=== PATIENT | male | born 1950 | race Caucasian/White ===

== ENCOUNTER → 2018-10-14 08:08 | Outpatient (CLI) | payer MEDICARE, SELFPAY ==
[2018-10-14 08:50] LABS: Hematocrit 50.8 % (41-53); Hemoglobin 17.4 g/dL (13.5-17.5); Mean Corpuscular HGB Conc 34.4 % (30-36); Mean Corpuscular Hemoglobin 33.5 PG (26-34); Mean Corpuscular Volume 97.5 fL (80-100); Platelet Count 234 X10^3/uL (150-400); Red Cell Distribution Width 13.4 % (11.6-14.8); White Blood Cell Count 4.7 X10^3/uL (4.5-11.0)
[2018-10-14 09:56] LABS: Alanine Aminotransferase 18 IU/L (21-72); Albumin 4.1 g/dL (3.5-5.0); Albumin Globulin Ratio 1.4 (1.0-2.8); Alkaline Phosphatase 45 U/L (38-126); Aspartate Aminotransferase 20 IU/L (17-59); Bilirubin Total 0.6 mg/dL (0.2-1.3); Blood Urea Nitrogen 19 mg/dL (9-20); Carbon Dioxide 27 mmol/L (22-32); Chloride 102 mmol/L (98-107); Cholesterol 194 mg/dL (140-199); Estimated Glomerular Filt Rate > 60.0 mL/min (>60); Globulin 2.9 g/dL (1.7-4.1); Glucose 96 mg/dL (80-110); HDL Cholesterol 56 mg/dL (40-60); HEMOLYSIS < 15 (0-50); LDL Cholesterol Calculated 127 mg/dL (<100); Potassium 4.2 mmol/L (3.4-5.1); Sodium 136 mmol/L (137-145); Triglycerides 54 mg/dL (35-150)
[2018-10-14 10:26] LABS: Prostate Specific Antigen 2.29 ng/mL (0.10-4.00)
[2018-10-18 15:06] LABS: Testosterone Free 229.7 pg/mL (35.0-155.0); Testosterone Total 1541 ng/dL (250-1100)
== END ==
PROVIDERS: Visit Provider Family Medicine
DX: G47.00 Insomnia, unspecified (principal)
CPT/HCPCS: 36415; 80053; 80061; 84153; 84402; 84403; 85027

== ENCOUNTER → 2018-10-26 10:48 | Outpatient (CLI) | payer MEDICARE, SELFPAY ==
--- NOTE | 2018-10-26 10:50 | DI.RAD.S_ITS ---
PROCEDURE: XR LUMBAR SPINE 2-3V INDICATIONS: low back pain TECHNIQUE: 3 views of the lumbar spine were acquired. COMPARISON: None. FINDINGS: Bones: 5 [id number] vertebrae are present. There is mild dextroscoliosis centered at L3 level. No vertebral body compression fractures. Minimal retrolisthesis at L2-3 and L3-4 levels are seen. Degenerative endplate changes and bilateral facet arthrosis throughout lumbar spine is seen, more prominent at L2-3, L3-4 and L5-S1 levels. No suspicious bony lesions. Soft tissues: Overlying bowel gas pattern is normal. No suspicious soft tissue calcifications. IMPRESSION: Degenerative disc disease throughout lumbar spine. Mild dextroscoliosis. No acute compression fracture. Grade 1 retrolisthesis at L2-3 and L3-4 levels. Dictated by: Tony Cuevas M.D. on 10/26/2018 at 13:05 Approved by: Tony Cuevas M.D. on 10/26/2018 at 13:10
== END ==
PROVIDERS: PCP Family Medicine; Visit Provider Family Medicine
DX: M54.5 Low back pain (principal); M51.36 Other intervertebral disc degeneration, lumbar region; M51.37 Other intervertebral disc degeneration, lumbosacral region; M43.16 Spondylolisthesis, lumbar region; M41.86 Other forms of scoliosis, lumbar region
CPT/HCPCS: 72100

== ENCOUNTER 2019-01-16 08:15 | Outpatient (RCR) | payer MEDICARE, SELFPAY ==
--- NOTE | 2018-11-28 10:12 | PT.OIE ---
Current Diagnoses Low back pain (11/28/18) Past Medical History (Last Updated 03/04/18 @ 10:36 by Caitlyn Farmer) Depression (Chronic 1970) Diverticular disease (Chronic) Hearing loss (Chronic) Hemorrhoids (Chronic) Hyperlipidemia (Chronic) Hypertension (Chronic) Low testosterone (Chronic) Colon polyps (Resolved) Measles (Resolved 1957) Mumps (Resolved ~1954) Plantar warts (Resolved 2009) Past Surgical History (Last Updated 03/04/18 @ 10:36 by Caitlyn Farmer) Anesthesia (Resolved) History of appendectomy (Resolved 1959) History of colonoscopy with polypectomy (Resolved) History of inguinal hernia repair (Resolved 1973) History of inguinal hernia repair (Resolved 1975) History of inguinal hernia repair (Resolved 2003) Provider Visit Care Team Role Provider Type Jacques Charlton MD Attending Provider Physician Primary Care Provider Specialty: Family Practice Address: [address] [place] [address] Email: [email or web address] Physical Therapy Initial Evaluation PT-OP-A Visit Information Start: 11/28/18 09:06 Freq: Status: Active Protocol: Document 11/28/18 09:07 EA (Rec: 11/28/18 09:46 EA [id number]) Out-Patient Physical Therapy Visit Information Visit Information Visit Type Initial Evaluation Visit Start Time 08:20 Visit Stop Time 09:00 Total Visit Minutes 40 Visit Number 1 Number of SOCIAL MEDIA SR STRATEGY MANAGER Visits 0 Evaluation Information Evaluation Date 11/28/18 PT-OP-B Current Condition Start: 11/28/18 09:06 Freq: Status: Active Protocol: Document 11/28/18 09:07 EA (Rec: 11/28/18 09:46 EA [id number]) Current Condition History of Current Condition Onset Date 1 1/2 month ago Current Complaints Low back pain and left leg numbness History of Current Condition Patient reports chronic low back pain for more than 20 years and managed with rests, chiropractor and OTC pain meds . He reports 1 1/2 month ago when he re-aggravated it after abdominal and leg exercises. He mentioned that he usually hook his leg while doing sit- ups. He believes disc bulge might be causing to press the nerve. He also reports x-rays results shows DDD and lumbar dextro scoliosis with grade 1 anterolisthesis. Prior Treatments and Tests X-rays few weeks ago. Chiropractor treatment. Low back steroid injection Future Testing and Treatments Planned None reported Treatment Goals Patient/Caregiver Goals Patient would like to get rid of the leg numbness. Patient would like to know safe abdominal exercises. Prior Functional Status Baseline Function- ADL's Independent Baseline Function- Mobility Independent Baseline Function- Gait with no AD with no limitation Baseline Function- Work/School Retired Baseline Function- Recreation/Hobbies Regular general body fitness exercises Current Functional Impairments (Reported) Functional Limitations- ADL's Indep with dificulty in lifting activities when symptoms increased Functional Limitations- Mobility/Gait > 3 miles of walk aggravates low back pain with constant leg numbness Functional Limitations- Work/School retired Functional Limitations- Recreation/ Unable to get back to fitness Hobbies routine exercises due to fear of re-aggravating the low back area. PT-OP-C Subjective Start: 11/28/18 09:06 Freq: Status: Active Protocol: Document 11/28/18 09:07 EA (Rec: 11/28/18 09:46 EA [id number]) OP-PT Subjective Patient Comments Patient Comments My pain is pretty much resolved after low back injection; states It sort of left leg went to sleep. Patient Reported Progress Improving Patient Questionnaires Oswestry Low Back Index Oswestry Score 26 Oswestry Impairment 40 to 59% Impaired (Score 40- 59) PT-OP-G Mobility & Gait Start: 11/28/18 09:06 Freq: Status: Active Protocol: Document 11/28/18 09:07 EA (Rec: 11/28/18 09:46 EA [id number]) OP Gait Assessment Comments Gait Comments WFL PT-OP-H Neuro Start: 11/28/18 09:50 Freq: Status: Active Protocol: Document 11/28/18 09:50 EA (Rec: 11/28/18 09:51 EA [id number]) Sensation Evaluation Gross Sensation Gross Sensation Left LE Impaired Sensation Description Numbness [place] Dermatome Impairments L4 L5 S1 Coordination Evaluation Lower Extremity Tests Left Alternate Heel to Knee; Heel to Toe Test Normal Performance Heel on [place]ivas Test Normal Performance Foot Tapping Test Normal Performance Drawing a [place] w/Foot Test Normal Performance Deep Tendon Reflex & Clonus Assessment Deep Tendon Reflex Left Patellar Deep Tendon Reflex 2+ Normal PT-OP-J Posture/Palpation/Skin Start: 11/28/18 09:06 Freq: Status: Active Protocol: Document 11/28/18 09:07 EA (Rec: 11/28/18 09:46 EA [id number]) Posture Evaluation Comments Posture Comments Flat low back with left anterior pelvic tilt Palpation Assessment Location One Palpation Location Upper gluteal, left hip external rotators SI joint Palpation Findings Soft Tissue Tightness Tenderness PT-OP-K Range of Motion Start: 11/28/18 09:06 Freq: Status: Active Protocol: Document 11/28/18 09:07 EA (Rec: 11/28/18 09:46 EA [id number]) Lumbar Spine Range of Motion Lumbar Spine Active Percentage Testing Position Standing Flexion 65 Extension 75 Rotation Left 80 Rotation Right 80 Lateral Flexion Left 75 Lateral Flexion Right 75 ROM Limitations Soft Tissue Tightness PT-OP-L Special Tests Start: 11/28/18 09:06 Freq: Status: Active Protocol: Document 11/28/18 09:07 EA (Rec: 11/28/18 09:46 EA [id number]) Special Tests Lumbar Spine Special Tests Other- 3 Test Results Sensitive with Andrew's test Other- 2 Test Results - quadrant test (foraminal and facets) Other- 1 Test Results -ev SI joint sidlying compression Prone Instability Test Test Results -ve Straight Leg Raise Test Results Left sensitive Slump Test Results - Hip Special Tests Piriformis Test Results Sensitive PT-OP-M Strength Start: 11/28/18 09:06 Freq: Status: Active Protocol: Document 11/28/18 09:07 EA (Rec: 11/28/18 09:46 EA [id number]) Trunk Strength Trunk Manual Muscle Testing Testing Position Supine Flexion 4- Good- Extension 4 Good Rotation Left 4 Good Rotation Right 4 Good Lateral Flexion Left 4 Good Lateral Flexion Right 4 Good Hip Strength Hip Manual Muscle Testing Right Flexion (L2) 5 Normal Extension (S1) 5 Normal Abduction 4+ Good+ Adduction 5 Normal External Rotation 5 Normal Internal Rotation 5 Normal Left Flexion (L2) 5 Normal Extension (S1) 5 Normal Abduction 4+ Good+ Adduction 5 Normal External Rotation 5 Normal Internal Rotation 5 Normal Knee Strength Knee Manual Muscle Testing Right Flexion (S2) 5 Normal Extension (L3) 5 Normal Left Flexion (S2) 5 Normal Extension (L3) 5 Normal Ankle/Foot Strength Ankle and Foot Manual Muscle Testing Left Comments Able to walk on both heels and toes PT-OP-Q Treatments Start: 11/28/18 09:06 Freq: Status: Active Protocol: Document 11/28/18 09:07 EA (Rec: 11/28/18 09:46 EA [id number]) Therapeutic Exercises Supine Exercises 4 Supine Exercise Name SKTC Reps/Minutes x 30SH x 2 3 Supine Exercise Name PPT with partial sit ups, Oblique rota Reps/Minutes x 10 reps each sides 2 Supine Exercise Name Hamstring stretchs Reps/Minutes x 30SH x 3 Comments HEP 1 Supine Exercise Name Piriformis stretch Reps/Minutes x 30SH x 2 Comments HEP Self-Care/Home Management Treatment Education Patient Education Home Exercise Program Pain Management Posture PT-OP-T Assessment and Plan Start: 11/28/18 09:06 Freq: Status: Active Protocol: Document 11/28/18 09:07 EA (Rec: 11/28/18 09:46 EA [id number]) Physical Therapy Assessment Rehab Potential Rehabilitation Potential Good Evaluation Complexity Number of Personal Factors/Comorbidities 1-2 Number of Body Systems Impaired 3 Clinical Presentation at Evaluation Stable Impairments Impairments Activity Tolerance Pain Posture ROM Soft Tissue Mobility Goals Four Impairment Unable to do regular fitness exercises Longterm Goal (LTG) Patient will get back to regular fitness routine without re-aggravating low back and leg issues. LTG Duration 5 wks Three Impairment Impaired both hamstrings, hip flexors flexibility Longterm Goal (LTG) Patient will exhibit functional muscular excursion to both LEs. LTG Duration 4 wks Two Impairment Oswestry low back functional scale score of 26/50 [employer] Goal (LTG) Oswestry score of <10/50 LTG Duration 5 wks One Impairment NO home exercises in place [employer] Goal (LTG) Patient will exhibit safe independent exercises LTG Duration 3 wks` Assessment Summary Assessment Pleasant 68 y/o M patient with referring diagnosis of low back pain. Today patient demonstrates lumbosacral and hip muscular flexibility limitation with no significant weakness to BLE and trunk. Slight decreased lumbar lordosis noted with slight post pelvic tilt. Special tests to lumbar and SI joint noted no evidenced of nerve compression with negative to sacral compression, posterior quadrant test, and nerve provocation to lumbar area. Evidence of uneven height of pelvis and leg lenth discrepancy noted during assessment. In addition, patient is placing his wallet on the left side at all the time which is a potential source of pressing sciatic nerve . 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 Patient would benefit with skilled PT to improve flexibility, improve posture, safe fitness exercises and lifting mechanics education. Physical Therapy Plan Frequency and Duration Frequency of Treatment 1x/Week Duration of Treatment 6 wks Plan of Care Start Date 11/28/18 Plan of Care End Date 01/09/19 Therapeutic Interventions Therapeutic Interventions Home Exercise Program Joint Mobilizations Manual Therapy Patient/Caregiver Education Self-Care/Home Management Soft Tissue Mobilization Taping Therapeutic Activities Therapeutic Exercises Modalities Cold Pack/Ice Massage Electric Stimulation Hot Packs Traction- Mechanical Ultrasound Next Visit Focus/Plan Next Note Type Treatment Note Next Visit Plan HEP images, postural exercises , stretching, core exercises
--- NOTE | 2018-11-28 10:12 | PT.OPPOC ---
Current Diagnoses Low back pain (11/28/18) Provider Visit Care Team Role Provider Type Jacques Charlton MD Attending Provider Physician Primary Care Provider Specialty: Family Practice Address: [address] [place] [address], [facility] Email: [email or web address] Plan Of Care PT-OP-T Assessment and Plan Start: 11/28/18 09:06 Freq: Status: Active Protocol: Document 11/28/18 09:07 THOMAS (Rec: 11/28/18 09:46 EA [id number]) Physical Therapy Assessment Rehab Potential Rehabilitation Potential Good Evaluation Complexity Number of Personal Factors/Comorbidities 1-2 Number of Body Systems Impaired 3 Clinical Presentation at Evaluation Stable Impairments Impairments Activity Tolerance Pain Posture ROM Soft Tissue Mobility Goals Four Impairment Unable to do regular fitness exercises Acid Splicer Goal (LTG) Patient will get back to regular fitness routine without re-aggravating low back and leg issues. LTG Duration 5 wks Three Impairment Impaired both hamstrings, hip flexors flexibility Intermediate Goal (LTG) Patient will exhibit functional muscular excursion to both LEs. LTG Duration 4 wks Two Impairment Oswestry low back functional scale score of 26/50 Intermediate Goal (LTG) Oswestry score of <10/50 LTG Duration 5 wks One Impairment NO home exercises in place Intermediate Goal (LTG) Patient will exhibit safe independent exercises LTG Duration 3 wks` Assessment Summary Assessment Pleasant 68 y/o M patient with referring diagnosis of low back pain. Today patient demonstrates lumbosacral and hip muscular flexibility limitation with no significant weakness to BLE and trunk. Slight decreased lumbar lordosis noted with slight post pelvic tilt. Special tests to lumbar and SI joint noted no evidenced of nerve compression with negative to sacral compression, posterior quadrant test, and nerve provocation to lumbar area. Evidence of uneven height of pelvis and leg lenth discrepancy noted during assessment. In addition, patient is placing his wallet on the left side at all the time which is a potential source of pressing sciatic nerve . 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 Patient would benefit with skilled PT to improve flexibility, improve posture, safe fitness exercises and lifting mechanics education. Physical Therapy Plan Frequency and Duration Frequency of Treatment 1x/Week Duration of Treatment 6 wks Plan of Care Start Date 11/28/18 Plan of Care End Date 01/09/19 Therapeutic Interventions Therapeutic Interventions Home Exercise Program Joint Mobilizations Manual Therapy Patient/Caregiver Education Self-Care/Home Management Soft Tissue Mobilization Taping Therapeutic Activities Therapeutic Exercises Modalities Cold Pack/Ice Massage Electric Stimulation Hot Packs Traction- Mechanical Ultrasound Next Visit Focus/Plan Next Note Type Treatment Note Next Visit Plan HEP images, postural exercises , stretching, core exercises Plan of Care Dates Plan of Care Start Date 11/28/18 Plan of Care End Date 01/09/19 Please Sign and Return: I have reviewed this Plan of Care and certify that the skilled therapy services above are required to meet the patient?s needs. Physician Signature Date Printed Name and Credentials Clinical Instructor Signature Printed Name and Credentials
--- NOTE | 2018-12-08 12:05 | PT.OTN ---
Current Diagnoses Low back pain (12/08/18) Physical Therapy Treatment Note PT-OP-A Visit Information Start: 11/28/18 09:06 Freq: Status: Active Protocol: Document 12/08/18 08:55 EA (Rec: 12/08/18 09:02 EA [id number]) Out-Patient Physical Therapy Visit Information Visit Information Visit Type Treatment Note Visit Start Time 08:15 Visit Stop Time 09:05 Total Visit Minutes 50 Visit Number 2 PT-OP-B Current Condition Start: 11/28/18 09:06 Freq: Status: Active Protocol: Document 11/28/18 09:07 EA (Rec: 11/28/18 09:46 EA [id number]) Current Condition History of Current Condition Onset Date 1 1/2 month ago Current Complaints Low back pain and left leg numbness History of Current Condition Patient reports chronic low back pain for more than 20 years and managed with rests, chiropractor and OTC pain meds . He reports 1 1/2 month ago when he re-aggravated it after abdominal and leg exercises. He mentioned that he usually hook his leg while doing sit- ups. He believes disc bulge might be causing to press the nerve. He also reports x-rays results shows DDD and lumbar dextro scoliosis with grade 1 anterolisthesis. Prior Treatments and Tests X-rays few weeks ago. Chiropractor treament. Low back steroid injection Future Testing and Treatments Planned None reported Treatment Goals Patient/Caregiver Goals Patient would like to get rid of the leg numbness. Patient would like to know safe abdominal exercises. Prior Functional Status Baseline Function- ADL's Independent Baseline Function- Mobility Independent Baseline Function- Gait with no AD with no limitation Baseline Function- Work/School Retired Baseline Function- Recreation/Hobbies Regular general body fitness exercises Current Functional Impairments (Reported) Functional Limitations- ADL's Indep with dificulty in lifting activities when symptoms increased Functional Limitations- Mobility/Gait > 3 miles of walk aggravates low back pain with constant leg numbness Functional Limitations- Work/School retired Functional Limitations- Recreation/ Unable to get back to fitness Hobbies routine exercises due to fear of re-aggravating the low back area. PT-OP-C Subjective Start: 11/28/18 09:06 Freq: Status: Active Protocol: Document 12/08/18 08:55 EA (Rec: 12/08/18 09:02 EA [id number]) OP-PT Subjective Patient Comments Patient Comments Patient reports not placing any wallet left side anymore. Reports unable to perform HEP; states wants to have a copy PT-OP-G Mobility & Gait Start: 11/28/18 09:06 Freq: Status: Active Protocol: Document 11/28/18 09:07 EA (Rec: 11/28/18 09:46 EA [id number]) OP Gait Assessment Comments Gait Comments WFL PT-OP-H Neuro Start: 11/28/18 09:50 Freq: Status: Active Protocol: Document 11/28/18 09:50 EA (Rec: 11/28/18 09:51 EA [id number]) Sensation Evaluation Gross Sensation Gross Sensation Left LE Impaired Sensation Description Numbness [place] Dermatome Impairments L4 L5 S1 Coordination Evaluation Lower Extremity Tests Left Alternate Heel to Knee; Heel to Toe Test Normal Performance Heel on [place] Test Normal Performance Foot Tapping Test Normal Performance Drawing a [place] w/Foot Test Normal Performance Deep Tendon Reflex & Clonus Assessment Deep Tendon Reflex Left Patellar Deep Tendon Reflex 2+ Normal PT-OP-J Posture/Palpation/Skin Start: 11/28/18 09:06 Freq: Status: Active Protocol: Document 11/28/18 09:07 EA (Rec: 11/28/18 09:46 EA [id number]) Posture Evaluation Comments Posture Comments Flat low back with left anterior pelvic tilt Palpation Assessment Location One Palpation Location Upper gluteal, left hip external rotators SI joint Palpation Findings Soft Tissue Tightness Tenderness PT-OP-K Range of Motion Start: 11/28/18 09:06 Freq: Status: Active Protocol: Document 11/28/18 09:07 EA (Rec: 11/28/18 09:46 EA [id number]) Lumbar Spine Range of Motion Lumbar Spine Active Percentage Testing Position Standing Flexion 65 Extension 75 Rotation Left 80 Rotation Right 80 Lateral Flexion Left 75 Lateral Flexion Right 75 ROM Limitations Soft Tissue Tightness PT-OP-L Special Tests Start: 11/28/18 09:06 Freq: Status: Active Protocol: Document 11/28/18 09:07 EA (Rec: 11/28/18 09:46 EA [id number]) Special Tests Lumbar Spine Special Tests Other- 3 Test Results Sensitive with Andrew's test Other- 2 Test Results - quadrant test (foraminal and facets) Other- 1 Test Results -ev SI joint sidlying compression Prone Instability Test Test Results -ve Straight Leg Raise Test Results Left sensitive Slump Test Results - Hip Special Tests Piriformis Test Results Sensitive PT-OP-M Strength Start: 11/28/18 09:06 Freq: Status: Active Protocol: Document 11/28/18 09:07 EA (Rec: 11/28/18 09:46 EA [id number]) Trunk Strength Trunk Manual Muscle Testing Testing Position Supine Flexion 4- Good- Extension 4 Good Rotation Left 4 Good Rotation Right 4 Good Lateral Flexion Left 4 Good Lateral Flexion Right 4 Good Hip Strength Hip Manual Muscle Testing Right Flexion (L2) 5 Normal Extension (S1) 5 Normal Abduction 4+ Good+ Adduction 5 Normal External Rotation 5 Normal Internal Rotation 5 Normal Left Flexion (L2) 5 Normal Extension (S1) 5 Normal Abduction 4+ Good+ Adduction 5 Normal External Rotation 5 Normal Internal Rotation 5 Normal Knee Strength Knee Manual Muscle Testing Right Flexion (S2) 5 Normal Extension (L3) 5 Normal Left Flexion (S2) 5 Normal Extension (L3) 5 Normal Ankle/Foot Strength Ankle and Foot Manual Muscle Testing Left Comments Able to walk on both heels and toes PT-OP-Q Treatments Start: 11/28/18 09:06 Freq: Status: Active Protocol: Document 12/08/18 08:55 EA (Rec: 12/08/18 09:02 EA [id number]) Cardio Equipment Recumbent Bicycle Duration (Minutes) 5 Resistance 5 Therapeutic Exercises Supine Exercises 4 Supine Exercise Name SKTC Reps/Minutes x 30SH x 2 3 Supine Exercise Name PPT with partial sit ups, Oblique rota Reps/Minutes x 10 reps each sides 2 Supine Exercise Name Hamstring stretchs Reps/Minutes x 30SH x 3 Comments HEP 1 Supine Exercise Name Piriformis stretch Reps/Minutes x 30SH x 2 Comments HEP Prone Exercises 1 Prone Exercise Name quadroped: back flexion/ext Reps/Minutes x 15 reps x 2 sets Standing Exercises 1 Standing Exercise Name ITB stretch Reps/Minutes x 3 reps x 15SH Manual Therapy Treatment Soft Tissue Mobilization 1 Body Location Left gluteals, ITB Mobilization Type Myofascial Release Rolling Sustained Pressure Trigger Point Release Intensity/Depth Moderate Body Position Sidelying PT-OP-R Modalities Start: 11/28/18 09:06 Freq: Status: Active Protocol: Document 12/08/18 08:55 EA (Rec: 12/08/18 09:02 EA [id number]) Electric Stimulation Electric Stimulation Interferential Current (IFC) Body Location left gluteals Duration (Minutes) 15 Intensity 17 Contraction Type Normal Combined With Heat/Cold Hot Pack PT-OP-T Assessment and Plan Start: 11/28/18 09:06 Freq: Status: Active Protocol: Document 12/08/18 08:55 EA (Rec: 12/08/18 09:02 EA [id number]) Physical Therapy Assessment Assessment Summary Assessment Tolerated treatment well. Educated with HEP and shows good understanding Physical Therapy Plan Next Visit Focus/Plan Next Note Type Treatment Note
--- NOTE | 2018-12-26 13:51 | PT.OTN ---
Current Diagnoses Low back pain (12/26/18) Physical Therapy Treatment Note PT-OP-A Visit Information Start: 11/28/18 09:06 Freq: Status: Active Protocol: Document 12/26/18 12:08 EA (Rec: 12/26/18 12:15 EA [id number]) Out-Patient Physical Therapy Visit Information Visit Information Visit Type Treatment Note Visit Start Time 08:15 Visit Stop Time 09:05 Total Visit Minutes 40 Visit Number 3 PT-OP-B Current Condition Start: 11/28/18 09:06 Freq: Status: Active Protocol: Document 11/28/18 09:07 EA (Rec: 11/28/18 09:46 EA [id number]) Current Condition History of Current Condition Onset Date 1 1/2 month ago Current Complaints Low back pain and left leg numbness History of Current Condition Patient reports chronic low back pain for more than 20 years and managed with rests, chiropractor and OTC pain meds . He reports 1 1/2 month ago when he re-aggravated it after abdominal and leg exercises. He mentioned that he usually hook his leg while doing sit- ups. He believes disc bulge might be causing to press the nerve. He also reports x-rays results shows DDD and lumbar dextro scoliosis with grade 1 anterolisthesis. Prior Treatments and Tests X-rays few weeks ago. Chiropractor treament. Low back steroid injection Future Testing and Treatments Planned None reported Treatment Goals Patient/Caregiver Goals Patient would like to get rid of the leg numbness. Patient would like to know safe abdominal exercises. Prior Functional Status Baseline Function- ADL's Independent Baseline Function- Mobility Independent Baseline Function- Gait with no AD with no limitation Baseline Function- Work/School Retired Baseline Function- Recreation/Hobbies Regular general body fitness exercises Current Functional Impairments (Reported) Functional Limitations- ADL's Indep with dificulty in lifting activities when symptoms increased Functional Limitations- Mobility/Gait > 3 miles of walk aggravates low back pain with constant leg numbness Functional Limitations- Work/School retired Functional Limitations- Recreation/ Unable to get back to fitness Hobbies routine exercises due to fear of re-aggravating the low back area. PT-OP-C Subjective Start: 11/28/18 09:06 Freq: Status: Active Protocol: Document 12/26/18 12:08 EA (Rec: 12/26/18 12:15 EA [id number]) OP-PT Subjective Patient Comments Patient Comments Pt reports My pain and numbness to left leg and low back is episodic PT-OP-G Mobility & Gait Start: 11/28/18 09:06 Freq: Status: Active Protocol: Document 11/28/18 09:07 EA (Rec: 11/28/18 09:46 EA [id number]) OP Gait Assessment Comments Gait Comments WFL PT-OP-H Neuro Start: 11/28/18 09:50 Freq: Status: Active Protocol: Document 11/28/18 09:50 EA (Rec: 11/28/18 09:51 EA [id number]) Sensation Evaluation Gross Sensation Gross Sensation Left LE Impaired Sensation Description Numbness Tingling Pins & [place] Dermatome Impairments L4 L5 S1 Coordination Evaluation Lower Extremity Tests Left Alternate Heel to Knee; Heel to Toe Test Normal Performance Heel on [place]ivas Test Normal Performance Foot Tapping Test Normal Performance Drawing a [place] w/Foot Test Normal Performance Deep Tendon Reflex & Clonus Assessment Deep Tendon Reflex Left Patellar Deep Tendon Reflex 2+ Normal PT-OP-J Posture/Palpation/Skin Start: 11/28/18 09:06 Freq: Status: Active Protocol: Document 11/28/18 09:07 EA (Rec: 11/28/18 09:46 EA [id number]) Posture Evaluation Comments Posture Comments Flat low back with left anterior pelvic tilt Palpation Assessment Location One Palpation Location Upper gluteal, left hip external rotators SI joint Palpation Findings Soft Tissue Tightness Tenderness PT-OP-K Range of Motion Start: 11/28/18 09:06 Freq: Status: Active Protocol: Document 11/28/18 09:07 EA (Rec: 11/28/18 09:46 EA [id number]) Lumbar Spine Range of Motion Lumbar Spine Active Percentage Testing Position Standing Flexion 65 Extension 75 Rotation Left 80 Rotation Right 80 Lateral Flexion Left 75 Lateral Flexion Right 75 ROM Limitations Soft Tissue Tightness PT-OP-L Special Tests Start: 11/28/18 09:06 Freq: Status: Active Protocol: Document 11/28/18 09:07 EA (Rec: 11/28/18 09:46 EA [id number]) Special Tests Lumbar Spine Special Tests Other- 3 Test Results Sensitive with Andrew's test Other- 2 Test Results - quadrant test (foraminal and facets) Other- 1 Test Results -ev SI joint sidlying compression Prone Instability Test Test Results -ve Straight Leg Raise Test Results Left sensitive Slump Test Results - Hip Special Tests Piriformis Test Results Sensitive PT-OP-M Strength Start: 11/28/18 09:06 Freq: Status: Active Protocol: Document 11/28/18 09:07 EA (Rec: 11/28/18 09:46 EA [id number]) Trunk Strength Trunk Manual Muscle Testing Testing Position Supine Flexion 4- Good- Extension 4 Good Rotation Left 4 Good Rotation Right 4 Good Lateral Flexion Left 4 Good Lateral Flexion Right 4 Good Hip Strength Hip Manual Muscle Testing Right Flexion (L2) 5 Normal Extension (S1) 5 Normal Abduction 4+ Good+ Adduction 5 Normal External Rotation 5 Normal Internal Rotation 5 Normal Left Flexion (L2) 5 Normal Extension (S1) 5 Normal Abduction 4+ Good+ Adduction 5 Normal External Rotation 5 Normal Internal Rotation 5 Normal Knee Strength Knee Manual Muscle Testing Right Flexion (S2) 5 Normal Extension (L3) 5 Normal Left Flexion (S2) 5 Normal Extension (L3) 5 Normal Ankle/Foot Strength Ankle and Foot Manual Muscle Testing Left Comments Able to walk on both heels and toes PT-OP-Q Treatments Start: 11/28/18 09:06 Freq: Status: Active Protocol: Document 12/26/18 12:08 EA (Rec: 12/26/18 12:15 EA [id number]) Cardio Equipment Recumbent Bicycle Duration (Minutes) 5 Resistance 5 Therapeutic Exercises Supine Exercises 4 Supine Exercise Name SKTC Reps/Minutes x 30SH x 2 3 Supine Exercise Name PPT with partial sit ups, Oblique rota Reps/Minutes x 10 reps each sides 2 Supine Exercise Name Hamstring stretchs Reps/Minutes x 30SH x 3 Comments HEP 1 Supine Exercise Name Piriformis stretch Reps/Minutes x 30SH x 2 Comments HEP Prone Exercises 3 Prone Exercise Name Tito pose w/ stretch to right paralumbars Reps/Minutes x 15 SH x 2 reps Comments HEP comp 2 Prone Exercise Name Thread and needle Reps/Minutes X 12 reps x 2 sets Comments HEP comp 1 Prone Exercise Name quadroped: back flexion/ext Reps/Minutes x 15 reps x 2 sets Comments HEP comp Sitting Exercises 1 Sitting Exercise Name Lumbrs extension Reps/Minutes x 10 reps Standing Exercises 1 Standing Exercise Name ITB stretch Reps/Minutes x 3 reps x 15SH Comments HEP comp. Self-Care/Home Management Treatment Education Patient Education Home Exercise Program Pain Management Posture Other Education Discussed benefits of HEP on current condition. PT-OP-R Modalities Start: 11/28/18 09:06 Freq: Status: Active Protocol: Document 12/08/18 08:55 EA (Rec: 12/08/18 09:02 EA [id number]) Electric Stimulation Electric Stimulation Interferential Current (IFC) Body Location left gluteals Duration (Minutes) 15 Intensity 17 Contraction Type Normal Combined With Heat/Cold Hot Pack PT-OP-T Assessment and Plan Start: 11/28/18 09:06 Freq: Status: Active Protocol: Document 12/26/18 12:08 EA (Rec: 12/26/18 12:15 EA [id number]) Physical Therapy Assessment Assessment Summary Assessment Patient performed therex with no signs of discomfort. Patient shows good understanding with HEP and agrees to comply. Physical Therapy Plan Next Visit Focus/Plan Next Note Type Treatment Note Next Visit Plan Progress as tolerated.
--- NOTE | 2019-01-16 08:15 | PT.OTN ---
Current Diagnoses Low back pain (01/16/19) Physical Therapy Treatment Note PT-OP-A Visit Information Start: 11/28/18 09:06 Freq: Status: Active Protocol: Document 01/16/19 08:15 DLM (Rec: 01/21/19 18:35 DLM [id number]) Out-Patient Physical Therapy Visit Information Visit Information Visit Type Treatment Note Visit Start Time 08:15 Visit Stop Time 09:01 Total Visit Minutes 46 Visit Number 4 Number of LATHE WINDER Visits 0 Evaluation Information Evaluation Date 11/28/18 PT-OP-B Current Condition Start: 11/28/18 09:06 Freq: Status: Active Protocol: Document 11/28/18 09:07 EA (Rec: 11/28/18 09:46 EA [id number]) Current Condition History of Current Condition Onset Date 1 1/2 month ago Current Complaints Low back pain and left leg numbness History of Current Condition Patient reports chronic low back pain for more than 20 years and managed with rests, chiropractor and OTC pain meds . He reports 1 1/2 month ago when he re-aggravated it after abdominal and leg exercises. He mentioned that he usually hook his leg while doing sit- ups. He believes disc bulge might be causing to press the nerve. He also reports x-rays results shows DDD and lumbar dextro scoliosis with grade 1 anterolisthesis. Prior Treatments and Tests X-rays few weeks ago. Chiropractor treament. Low back steroid injection Future Testing and Treatments Planned None reported Treatment Goals Patient/Caregiver Goals Patient would like to get rid of the leg numbness. Patient would like to know safe abdominal exercises. Prior Functional Status Baseline Function- ADL's Independent Baseline Function- Mobility Independent Baseline Function- Gait with no AD with no limitation Baseline Function- Work/School Retired Baseline Function- Recreation/Hobbies Regular general body fitness exercises Current Functional Impairments (Reported) Functional Limitations- ADL's Indep with dificulty in lifting activities when symptoms increased Functional Limitations- Mobility/Gait > 3 miles of walk aggravates low back pain with constant leg numbness Functional Limitations- Work/School retired Functional Limitations- Recreation/ Unable to get back to fitness Hobbies routine exercises due to fear of re-aggravating the low back area. PT-OP-C Subjective Start: 11/28/18 09:06 Freq: Status: Active Protocol: Document 01/16/19 08:15 DLM (Rec: 01/21/19 18:35 DLM [id number]) OP-PT Subjective Patient Comments Patient Comments Left foot is still numb. He has been working out a the gym . PT-OP-G Mobility & Gait Start: 11/28/18 09:06 Freq: Status: Active Protocol: Document 11/28/18 09:07 EA (Rec: 11/28/18 09:46 EA [id number]) OP Gait Assessment Comments Gait Comments WFL PT-OP-H Neuro Start: 11/28/18 09:50 Freq: Status: Active Protocol: Document 11/28/18 09:50 EA (Rec: 11/28/18 09:51 EA [id number]) Sensation Evaluation Gross Sensation Gross Sensation Left LE Impaired Sensation Description Numbness,Tingling,Pins & [place] Dermatome Impairments L4,L5,S1 Coordination Evaluation Lower Extremity Tests Left Alternate Heel to Knee; Heel to Toe Test Normal Performance Heel on Rivas Test Normal Performance Foot Tapping Test Normal Performance Drawing a [place] w/Foot Test Normal Performance Deep Tendon Reflex & Clonus Assessment Deep Tendon Reflex Left Patellar Deep Tendon Reflex 2+ Normal PT-OP-J Posture/Palpation/Skin Start: 11/28/18 09:06 Freq: Status: Active Protocol: Document 11/28/18 09:07 EA (Rec: 11/28/18 09:46 EA [id number]) Posture Evaluation Comments Posture Comments Flat low back with left anterior pelvic tilt Palpation Assessment Location One Palpation Location Upper gluteal, left hip external rotators SI joint Palpation Findings Soft Tissue Tightness, Tenderness PT-OP-K Range of Motion Start: 11/28/18 09:06 Freq: Status: Active Protocol: Document 11/28/18 09:07 EA (Rec: 11/28/18 09:46 EA [id number]) Lumbar Spine Range of Motion Lumbar Spine Active Percentage Testing Position Standing Flexion 65 Extension 75 Rotation Left 80 Rotation Right 80 Lateral Flexion Left 75 Lateral Flexion Right 75 ROM Limitations Soft Tissue Tightness PT-OP-L Special Tests Start: 11/28/18 09:06 Freq: Status: Active Protocol: Document 11/28/18 09:07 EA (Rec: 11/28/18 09:46 EA [id number]) Special Tests Lumbar Spine Special Tests Other- 3 Test Results Sensitive with Andrew's test Other- 2 Test Results - quadrant test (foraminal and facets) Other- 1 Test Results -ev SI joint sidlying compression Prone Instability Test Test Results -ve Straight Leg Raise Test Results Left sensitive Slump Test Results - Hip Special Tests Piriformis Test Results Sensitive PT-OP-M Strength Start: 11/28/18 09:06 Freq: Status: Active Protocol: Document 11/28/18 09:07 EA (Rec: 11/28/18 09:46 EA [id number]) Trunk Strength Trunk Manual Muscle Testing Testing Position Supine Flexion 4- Good- Extension 4 Good Rotation Left 4 Good Rotation Right 4 Good Lateral Flexion Left 4 Good Lateral Flexion Right 4 Good Hip Strength Hip Manual Muscle Testing Right Flexion (L2) 5 Normal Extension (S1) 5 Normal Abduction 4+ Good+ Adduction 5 Normal External Rotation 5 Normal Internal Rotation 5 Normal Left Flexion (L2) 5 Normal Extension (S1) 5 Normal Abduction 4+ Good+ Adduction 5 Normal External Rotation 5 Normal Internal Rotation 5 Normal Knee Strength Knee Manual Muscle Testing Right Flexion (S2) 5 Normal Extension (L3) 5 Normal Left Flexion (S2) 5 Normal Extension (L3) 5 Normal Ankle/Foot Strength Ankle and Foot Manual Muscle Testing Left Comments Able to walk on both heels and toes PT-OP-Q Treatments Start: 11/28/18 09:06 Freq: Status: Active Protocol: Document 01/16/19 08:15 DLM (Rec: 01/21/19 18:35 DLM [id number]) Cardio Equipment Recumbent Bicycle Duration (Minutes) 5 Resistance 5 Gym Equipment Cable Column (Body Solid) Lat Pull Down Details standing with core stab Resistance modified how he does at gym Reps/Time 10 Therapeutic Exercises Supine Exercises 4 Supine Exercise Name SKTC Reps/Minutes x 30SH x 2 3 Supine Exercise Name PPT with partial sit ups, Oblique rota Reps/Minutes x 10 reps each sides 2 Supine Exercise Name Hamstring stretchs Reps/Minutes x 30SH x 3 Comments HEP 1 Supine Exercise Name Piriformis stretch Reps/Minutes x 30SH x 2 Comments HEP Standing Exercises 2 Standing Exercise Name heel raises Side bilateral Resistance active Equipment Used stop machine at gym Self-Care/Home Management Treatment Education Patient Education Home Exercise Program,Pain Management,Posture Other Education reviewed gym exercises he does on his own and recommended modifications to decrease stress on his back PT-OP-R Modalities Start: 11/28/18 09:06 Freq: Status: Active Protocol: Document 12/08/18 08:55 EA (Rec: 12/08/18 09:02 EA [id number]) Electric Stimulation Electric Stimulation Interferential Current (IFC) Body Location left gluteals Duration (Minutes) 15 Intensity 17 Contraction Type Normal Combined With Heat/Cold Hot Pack PT-OP-T Assessment and Plan Start: 11/28/18 09:06 Freq: Status: Active Protocol: Document 01/16/19 08:15 DLM (Rec: 01/21/19 18:35 DLM [id number]) Physical Therapy Assessment Goals Four Impairment Unable to do regular fitness exercises Usp Goal (LTG) Patient will get back to regular fitness routine without re-aggravating low back and leg issues. LTG Duration 5 wks Three Impairment Impaired both hamstrings, hip flexors flexibility Usp Goal (LTG) Patient will exhibit functional muscular excursion to both LEs. LTG Duration 4 wks Two Impairment Oswestry low back functional scale score of 26/50 Director General Goal (LTG) Oswestry score of <10/50 LTG Duration 5 wks One Impairment NO home exercises in place Director General Goal (LTG) Patient will exhibit safe independent exercises LTG Duration 3 wks` Progress Towards Goals Progress Towards Goals Slow Progress - Other Progress Comments low attendance to therapy since eval on 11/28/18 Assessment Summary Assessment Kirt tolerated his exercises well today. Made modifications to his HEP at the gym to decrease the stress on his back. He reports good compliance with HEP. His attendance to therapy has been low with this being his 4 visit since his eval in November. Physical Therapy Plan Frequency and Duration Frequency of Treatment 1x/Week Duration of Treatment 6 wks Plan of Care Start Date 11/28/18 Plan of Care End Date 01/09/19 Therapeutic Interventions Therapeutic Interventions Home Exercise Program,Joint Mobilizations,Manual Therapy, Patient/Caregiver Education, Self-Care/Home Management,Soft Tissue Mobilization,Taping, Therapeutic Activities, Therapeutic Exercises Modalities Cold Pack/Ice Massage,Electric Stimulation,Hot Packs, Traction- Mechanical, Ultrasound Next Visit Focus/Plan Next Note Type Treatment Note Next Visit Plan progress HEP, review gym exercises and modify as needed to manage his back
--- NOTE | 2019-01-21 18:38 | PT.OPDS ---
Current Diagnoses Low back pain (01/16/19) Visit Care Team Role Provider Type Jacques Charlton MD Attending Provider Physician Primary Care Provider Specialty: Family Practice Address: [address] [place] [address], [facility] Email: [email or web address] Visit Number Visit Number 4 Discharge Summary PT-OP-B Current Condition Start: 11/28/18 09:06 Freq: Status: Active Protocol: Document 11/28/18 09:07 EA (Rec: 11/28/18 09:46 EA [id number]) Current Condition History of Current Condition Onset Date 1 1/2 month ago Current Complaints Low back pain and left leg numbness History of Current Condition Patient reports chronic low back pain for more than 20 years and managed with rests, chiropractor and OTC pain meds . He reports 1 1/2 month ago when he re-aggravated it after abdominal and leg exercises. He mentioned that he usually hook his leg while doing sit- ups. He believes disc bulge might be causing to press the nerve. He also reports x-rays results shows DDD and lumbar dextro scoliosis with grade 1 anterolisthesis. Prior Treatments and Tests X-rays few weeks ago. Chiropractor treament. Low back steroid injection Future Testing and Treatments Planned None reported Treatment Goals Patient/Caregiver Goals Patient would like to get rid of the leg numbness. Patient would like to know safe abdominal exercises. Prior Functional Status Baseline Function- ADL's Independent Baseline Function- Mobility Independent Baseline Function- Gait with no AD with no limitation Baseline Function- Work/School Retired Baseline Function- Recreation/Hobbies Regular general body fitness exercises Current Functional Impairments (Reported) Functional Limitations- ADL's Indep with dificulty in lifting activities when symptoms increased Functional Limitations- Mobility/Gait > 3 miles of walk aggravates low back pain with constant leg numbness Functional Limitations- Work/School retired Functional Limitations- Recreation/ Unable to get back to fitness Hobbies routine exercises due to fear of re-aggravating the low back area. PT-OP-C Subjective Start: 11/28/18 09:06 Freq: Status: Active Protocol: Document 01/16/19 08:15 DLM (Rec: 01/21/19 18:35 DLM [id number]) OP-PT Subjective Patient Comments Patient Comments Left foot is still numb. He has been working out a the gym . PT-OP-G Mobility & Gait Start: 11/28/18 09:06 Freq: Status: Active Protocol: Document 11/28/18 09:07 EA (Rec: 11/28/18 09:46 EA [id number]) OP Gait Assessment Comments Gait Comments WFL PT-OP-H Neuro Start: 11/28/18 09:50 Freq: Status: Active Protocol: Document 11/28/18 09:50 EA (Rec: 11/28/18 09:51 EA [id number]) Sensation Evaluation Gross Sensation Gross Sensation Left LE Impaired Sensation Description Numbness,Tingling,Pins & [place] Dermatome Impairments L4,L5,S1 Coordination Evaluation Lower Extremity Tests Left Alternate Heel to Knee; Heel to Toe Test Normal Performance Heel on [place] Test Normal Performance Foot Tapping Test Normal Performance Drawing a [place] w/Foot Test Normal Performance Deep Tendon Reflex & Clonus Assessment Deep Tendon Reflex Left Patellar Deep Tendon Reflex 2+ Normal PT-OP-J Posture/Palpation/Skin Start: 11/28/18 09:06 Freq: Status: Active Protocol: Document 11/28/18 09:07 EA (Rec: 11/28/18 09:46 EA [id number]) Posture Evaluation Comments Posture Comments Flat low back with left anterior pelvic tilt Palpation Assessment Location One Palpation Location Upper gluteal, left hip external rotators SI joint Palpation Findings Soft Tissue Tightness, Tenderness PT-OP-K Range of Motion Start: 11/28/18 09:06 Freq: Status: Active Protocol: Document 11/28/18 09:07 EA (Rec: 11/28/18 09:46 EA [id number]) Lumbar Spine Range of Motion Lumbar Spine Active Percentage Testing Position Standing Flexion 65 Extension 75 Rotation Left 80 Rotation Right 80 Lateral Flexion Left 75 Lateral Flexion Right 75 ROM Limitations Soft Tissue Tightness PT-OP-L Special Tests Start: 11/28/18 09:06 Freq: Status: Active Protocol: Document 11/28/18 09:07 EA (Rec: 11/28/18 09:46 EA [id number]) Special Tests Lumbar Spine Special Tests Other- 3 Test Results Sensitive with Andrew's test Other- 2 Test Results - quadrant test (foraminal and facets) Other- 1 Test Results -ev SI joint sidlying compression Prone Instability Test Test Results -ve Straight Leg Raise Test Results Left sensitive Slump Test Results - Hip Special Tests Piriformis Test Results Sensitive PT-OP-M Strength Start: 11/28/18 09:06 Freq: Status: Active Protocol: Document 11/28/18 09:07 EA (Rec: 11/28/18 09:46 EA [id number]) Trunk Strength Trunk Manual Muscle Testing Testing Position Supine Flexion 4- Good- Extension 4 Good Rotation Left 4 Good Rotation Right 4 Good Lateral Flexion Left 4 Good Lateral Flexion Right 4 Good Hip Strength Hip Manual Muscle Testing Right Flexion (L2) 5 Normal Extension (S1) 5 Normal Abduction 4+ Good+ Adduction 5 Normal External Rotation 5 Normal Internal Rotation 5 Normal Left Flexion (L2) 5 Normal Extension (S1) 5 Normal Abduction 4+ Good+ Adduction 5 Normal External Rotation 5 Normal Internal Rotation 5 Normal Knee Strength Knee Manual Muscle Testing Right Flexion (S2) 5 Normal Extension (L3) 5 Normal Left Flexion (S2) 5 Normal Extension (L3) 5 Normal Ankle/Foot Strength Ankle and Foot Manual Muscle Testing Left Comments Able to walk on both heels and toes PT-OP-T Assessment and Plan Start: 11/28/18 09:06 Freq: Status: Active Protocol: Document 01/21/19 18:35 DLM (Rec: 01/21/19 18:36 DLM [id number]) Physical Therapy Assessment Assessment Summary Assessment His progress has been limited but he has only attended 4 visits since his 11/28/18 eval. He has been provided with HEP . Made recommendations to modify his gym work-outs to decrease the stress on his back. Physical Therapy Plan Discharge Physical Therapy Discharge Reasons Patient Request Discharge Comments pt called 01/20/19 to cancel all future appointments
== END 2019-01-23 10:44 | disposition home or self-care (01) ==
LOC: PHYS 08:15
PROVIDERS: PCP Family Medicine; Visit Provider Family Medicine
DX: M54.5 Low back pain (principal)
CPT/HCPCS: 97014; 97110; 97140; 97161; 97535; G0283

== ENCOUNTER → 2019-03-21 13:59 | Outpatient (CLI) | payer MEDICARE, SELFPAY ==
[2019-03-25 17:16] LABS: Testosterone Free 74.1 pg/mL (35.0-155.0); Testosterone Total 743 ng/dL (250-1100)
== END ==
PROVIDERS: PCP Family Medicine; Visit Provider Family Medicine
DX: E29.1 Testicular hypofunction (principal)
CPT/HCPCS: 36415; 84402; 84403

== ENCOUNTER → 2019-12-05 09:00 | Outpatient (CLI) | payer MEDICARE, SELFPAY ==
[2019-12-05 09:58] LABS: Add Manual Diff / Slide Review NO; Basophils Absolute Auto 0 /uL (0-100); Basophils Percent Auto 0.7 % (0-2); Eosinophils Absolute Auto 100 /uL (0-450); Eosinophils Percent Auto 1.7 % (2-4); Hematocrit 44.9 % (41-53); Hemoglobin 15.6 g/dL (13.5-17.5); Lymphocytes Absolute Auto 1000 /uL (1100-4500); Lymphocytes Percent Auto 24.1 % (25-40); Mean Corpuscular HGB Conc 34.7 % (30-36); Mean Corpuscular Hemoglobin 33.6 PG (26-34); Mean Corpuscular Volume 96.8 fL (80-100); Monocytes Absolute Auto 500 /uL (0-900); Monocytes Percent Auto 12.7 % (3-14); Neutrophils Absolute Auto 2500 /uL (1500-7000); Neutrophils Percent Auto 60.8 % (50-75); Platelet Count 222 X10^3/uL (150-400); Red Blood Cell Count 4.63 X10^6/uL (4.5-5.9); White Blood Cell Count 4.2 X10^3/uL (4.5-11.0)
[2019-12-05 10:24] LABS: Alanine Aminotransferase 19 IU/L (<50); Albumin 3.9 g/dL (3.5-5.0); Albumin Globulin Ratio 1.6 (1.0-2.8); Alkaline Phosphatase 47 U/L (38-126); Aspartate Aminotransferase 22 IU/L (17-59); BUN Creatinine Ratio 27.1 (6-22); Bilirubin Total 0.4 mg/dL (0.2-1.3); Blood Urea Nitrogen 26 mg/dL (9-20); Calcium 9.5 mg/dL (8.4-10.2); Carbon Dioxide 27 mmol/L (22-32); Chloride 104 mmol/L (98-107); Cholesterol 168 mg/dL (140-199); Estimated Glomerular Filt Rate > 60.0 mL/min (>60); Globulin 2.5 g/dL (1.7-4.1); Glucose 137 mg/dL (80-110); HDL Cholesterol 54 mg/dL (40-60); HEMOLYSIS < 15 (0-50); LDL Cholesterol Calculated 93 mg/dL (<100); Potassium 4.2 mmol/L (3.4-5.1); Sodium 136 mmol/L (137-145); Total Protein 6.4 g/dL (6.3-8.2); Triglycerides 106 mg/dL (35-150)
[2019-12-05 10:52] LABS: TSH w/ Reflex to FT4 1.67 uIU/mL (0.47-4.68)
[2019-12-05 10:54] LABS: Prostate Specific Antigen 2.37 ng/mL (0.10-4.00)
== END ==
PROVIDERS: PCP Family Medicine; Referring Provider Family Medicine; Visit Provider Family Medicine
DX: D58.2 Other hemoglobinopathies (principal); G47.00 Insomnia, unspecified; M51.36 Other intervertebral disc degeneration, lumbar region
CPT/HCPCS: 36415; 80053; 80061; 84153; 84443; 85025

== ENCOUNTER → 2020-04-02 10:45 | Outpatient (CLI) | payer MEDICARE, SELFPAY ==
[2020-04-02 11:25] LABS: Add Manual Diff / Slide Review NO; Basophils Absolute Auto 0 /uL (0-100); Basophils Percent Auto 0.8 % (0-2); Eosinophils Absolute Auto 100 /uL (0-450); Eosinophils Percent Auto 1.4 % (2-4); Hemoglobin 15.6 g/dL (13.5-17.5); Lymphocytes Absolute Auto 1000 /uL (1100-4500); Lymphocytes Percent Auto 19.7 % (25-40); Mean Corpuscular HGB Conc 34.6 % (30-36); Mean Corpuscular Hemoglobin 33.8 PG (26-34); Mean Corpuscular Volume 97.6 fL (80-100); Monocytes Absolute Auto 500 /uL (0-900); Neutrophils Absolute Auto 3500 /uL (1500-7000); Neutrophils Percent Auto 68.1 % (50-75); Platelet Count 234 X10^3/uL (150-400); Red Cell Distribution Width 12.8 % (11.6-14.8); White Blood Cell Count 5.1 X10^3/uL (4.5-11.0)
[2020-04-02 12:35] LABS: Prostate Specific Antigen Scrn 1.62 ng/mL (0.1-4.0)
[2020-04-14 16:22] LABS: Percent Free Testosterone 4.35 % (1.50-4.20); Testosterone Free 35.14 ng/dL (5.00-21.00); Testosterone Total 807.9 ng/dL (264.0-916.0)
== END ==
PROVIDERS: PCP Family Medicine; Referring Provider Family Medicine; Visit Provider Family Medicine
DX: E29.1 Testicular hypofunction (principal)
CPT/HCPCS: 36415; 84402; 84403; 85025; G0103

== ENCOUNTER → 2020-12-13 10:28 | Outpatient (CLI) | payer MEDICARE, SELFPAY ==
[2020-12-13 10:59] LABS: Add Manual Diff / Slide Review NO; Basophils Absolute Auto 0 /uL (0-100); Basophils Percent Auto 0.8 % (0-2); Eosinophils Absolute Auto 100 /uL (0-450); Eosinophils Percent Auto 1.3 % (2-4); Hematocrit 47.5 % (41-53); Hemoglobin 16.2 g/dL (13.5-17.5); Lymphocytes Absolute Auto 1800 /uL (1100-4500); Lymphocytes Percent Auto 27.9 % (25-40); Mean Corpuscular Volume 96.9 fL (80-100); Monocytes Absolute Auto 600 /uL (0-900); Neutrophils Absolute Auto 3800 /uL (1500-7000); Platelet Count 245 X10^3/uL (150-400); Red Cell Distribution Width 12.5 % (11.6-14.8); White Blood Cell Count 6.3 X10^3/uL (4.5-11.0)
[2020-12-13 11:29] LABS: Albumin 4.5 g/dL (3.5-5.0); Albumin Globulin Ratio 1.5 (1.0-2.8); Alkaline Phosphatase 56 U/L (38-126); Aspartate Aminotransferase 35 IU/L (17-59); BUN Creatinine Ratio 13.2 (6-22); Bilirubin Total 0.6 mg/dL (0.2-1.3); Blood Urea Nitrogen 16 mg/dL (9-20); Calcium 9.3 mg/dL (8.4-10.2); Carbon Dioxide 14 mmol/L (22-32); Chloride 105 mmol/L (98-107); Cholesterol 205 mg/dL (140-199); Estimated Glomerular Filt Rate 59.1 mL/min (>60); Glucose 133 mg/dL (80-110); HDL Cholesterol 73 mg/dL (40-60); HEMOLYSIS < 15 (0-50); LDL Cholesterol Calculated 117 mg/dL (<100); Potassium 4.1 mmol/L (3.4-5.1); Sodium 138 mmol/L (137-145); Total Protein 7.5 g/dL (6.3-8.2); Triglycerides 74 mg/dL (35-150)
[2020-12-13 11:35] LABS: Alanine Aminotransferase 30 IU/L (<50)
[2020-12-13 11:54] LABS: Prostate Specific Antigen Scrn 2.16 ng/mL (0.1-4.0)
[2020-12-13 11:56] LABS: Thyroid Stimulating Hormone 2.57 uIU/mL (0.47-4.68)
== END ==
PROVIDERS: PCP Family Medicine; Referring Provider Family Medicine; Visit Provider Family Medicine
DX: Z12.5 Encounter for screening for malignant neoplasm of prostate (principal); Z13.0 Encounter for screening for diseases of the blood and blood-forming organs and certain disorders involving the immune mechanism; Z13.220 Encounter for screening for lipoid disorders; Z13.29 Encounter for screening for other suspected endocrine disorder; Z13.1 Encounter for screening for diabetes mellitus
CPT/HCPCS: 36415; 80053; 80061; 84443; 85025; G0103

== ENCOUNTER → 2021-01-21 09:45 | Outpatient (CLI) | payer MEDICARE, SELFPAY ==
[2021-01-21 11:05] LABS: Hemoglobin A1C% w Est Avg Glu 5.2 % (4.0-6.0)
[2021-01-21 11:26] LABS: Testosterone 1680 ng/dL (71.8-623)
== END ==
PROVIDERS: PCP Family Medicine; Referring Provider Family Medicine; Visit Provider Family Medicine
DX: R73.09 Other abnormal glucose (principal)
CPT/HCPCS: 36415; 83036; 84403

== ENCOUNTER → 2022-02-16 09:08 | Outpatient (CLI) | payer MEDICARE, SELFPAY ==
[2022-02-16 13:40] LABS: Add Manual Diff / Slide Review NO; Basophils Absolute Auto 0 /uL (0-100); Basophils Percent Auto 0.9 % (0-2); Eosinophils Absolute Auto 0 /uL (0-450); Eosinophils Percent Auto 1.2 % (2-4); Hematocrit 47.8 % (41-53); Hemoglobin 16.2 g/dL (13.5-17.5); Lymphocytes Absolute Auto 900 /uL (1100-4500); Lymphocytes Percent Auto 21.8 % (25-40); Mean Corpuscular Hemoglobin 33.3 PG (26-34); Mean Corpuscular Volume 97.9 fL (80-100); Monocytes Absolute Auto 500 /uL (0-900); Monocytes Percent Auto 11.5 % (3-14); Neutrophils Absolute Auto 2600 /uL (1500-7000); Neutrophils Percent Auto 64.6 % (50-75); Platelet Count 233 X10^3/uL (150-400); Red Blood Cell Count 4.88 X10^6/uL (4.5-5.9); Red Cell Distribution Width 13.5 % (11.6-14.8)
[2022-02-16 14:06] LABS: Alanine Aminotransferase 20 IU/L (<50); Albumin 3.8 g/dL (3.5-5.0); Albumin Globulin Ratio 1.4 (1.0-2.8); Alkaline Phosphatase 46 U/L (38-126); Aspartate Aminotransferase 27 IU/L (17-59); BUN Creatinine Ratio 16.1 (6-22); Bilirubin Total 0.5 mg/dL (0.2-1.3); Blood Urea Nitrogen 19 mg/dL (9-20); Calcium 8.8 mg/dL (8.4-10.2); Carbon Dioxide 27 mmol/L (22-32); Chloride 101 mmol/L (98-107); Cholesterol 179 mg/dL (140-199); Estimated Glomerular Filt Rate > 60 mL/min (>60); Globulin 2.8 g/dL (1.7-4.1); Glucose 101 mg/dL (80-110); HDL Cholesterol 55 mg/dL (40-60); HEMOLYSIS < 15 (0-50); LDL Cholesterol Calculated 109 mg/dL (<100); Potassium 4.3 mmol/L (3.4-5.1); Sodium 137 mmol/L (137-145); Total Protein 6.6 g/dL (6.3-8.2); Triglycerides 77 mg/dL (35-150)
[2022-02-16 14:35] LABS: Prostate Specific Antigen Scrn 2.94 ng/mL (0.1-4.0)
== END ==
PROVIDERS: PCP Family Medicine; Referring Provider Family Medicine; Visit Provider Family Medicine
DX: E78.5 Hyperlipidemia, unspecified (principal); Z12.5 Encounter for screening for malignant neoplasm of prostate; K57.90 Diverticulosis of intestine, part unspecified, without perforation or abscess without bleeding
CPT/HCPCS: 36415; 80053; 80061; 84443; 85025; G0103

== ENCOUNTER 2022-10-13 07:28 | Day surgery (SDC) | payer MEDICARE, SELFPAY ==
[2022-10-13 07:48] VITALS: BP 143/88; PULSE 78; RESP 16; TEMP 36.1; O2SAT 98; BMI 25.1
[2022-10-13] MEDS: LACTATED RINGERS 1,000 ML 200 ML IV (07:57)
--- NOTE | 2022-10-13 08:09 | PM.HP.1 ---
History of Present Illness History of Present Illness Date Patient Seen: 10/13/22 Time Patient Seen: 08:09 Chief complaint: Colonoscopy Narrative: 72-year-old man personal history of colonic polyps and a family history of colon cancer. Last colonoscopy was 7-10 years ago normal at that point. Previously he had polyps. His mother and grandmother have a history of colon cancer. No abdominal pain nausea vomiting blood per rectum unintentional weight loss. [facility] Medical History (Updated 10/13/22 @ 08:13 by Danielito Dela Cruz MD) Anxiety Colon polyps Depression (1969) Diverticular disease Hearing loss Hemorrhoids Hyperlipidemia Hypertension Low testosterone Measles (1957) Mumps (~1954) Neuropathy Plantar warts (2009) Surgical History (Updated 03/04/18 @ 10:36 by Caitlyn Farmer) Anesthesia History of appendectomy (1959) History of colonoscopy with polypectomy History of inguinal hernia repair (1973) History of inguinal hernia repair (1975) History of inguinal hernia repair (2003) Family History (Updated 03/04/18 @ 10:30 by Caitlyn Farmer) Father Stroke Prostate cancer Hypertension Mental health problem Mother Congestive heart failure Colon cancer Hypertension Brother No problems noted. Brother No problems noted. Grandfather Stroke Colon cancer Grandmother Colon cancer Grandfather Diabetes mellitus Heart failure Grandmother Stroke Social History marital status: household members: spouse Smoking Status: Never smoker alcohol intake: current substance use type: does not use Meds Home Medications and Allergies Home Medications Medication Instructions Recorded Confirmed Type testosterone cypionate 100 mg/mL 50 mg (0.5 mL) IM QWEEK #20 mL 04/16/21 10/13/22 Rx intramuscular oil (Depo-Testosterone) citalopram 20 mg tablet 20 mg PO DAILY #90 tabs 02/12/22 10/13/22 Rx trazodone 100 mg tablet 100 mg PO BEDTIME #90 tabs 02/12/22 10/13/22 Rx mecobalamin (vitamin B12) 1,000 mcg PO 10/13/22 History mcg chewable tablet (B12 Active) multivitamin 1 tab PO DAILY 10/13/22 10/13/22 History prasterone (dhea) 25 mg capsule 25 mg PO DAILY 10/13/22 10/13/22 History (DHEA) saw palmetto 320 mg capsule 320 mg PO DAILY 10/13/22 10/13/22 History vitamin B complex 1 cap PO DAILY 10/13/22 10/13/22 History Allergies Allergy/AdvReac Type Severity Reaction Status Date / Time No Known Drug Allergies Allergy Verified 02/12/22 08:30 Exam Vital Signs (past 8 hours): - 10/13/22 07:48 Temperature 97 F L Pulse Rate 78 Respiratory Rate 16 Blood Pressure 143/88 H Pulse Oximetry 98 Oxygen Delivery Method Room Air Oxygen Delivery Method Room Air Narrative Exam Narrative: General adult man alert oriented no acute distress Abdomen soft nontender nondistended Extremities warm well perfused Assessment & Plan Assessment and plan (1) Personal history of colonic polyps: Status: Acute Assessment & Plan narrative: The patient requires colorectal screening and colonoscopy is recommended. Technical details were discussed. Risks, benefits, alternatives explained. Risks including but not limited to myocardial infarction, aspiration, bleeding, pain, missed lesion, incomplete examination, need for further radiographic studies, colonic perforation, and need for major abdominal surgery were discussed. All questions were answered to their satisfaction, and they are in agreement with this plan.
[2022-10-13 08:37] VITALS: BP 143/88; PULSE 64; RESP 18; TEMP 36; O2SAT 92
[2022-10-13 08:41] VITALS: BP 143/94; PULSE 75; RESP 16; O2SAT 95
--- NOTE | 2022-10-13 08:44 | PM.OP.COLON ---
Operative Date/Time/Diagnoses Date of procedure: 10/13/22 Time of procedure: 08:44 Pre-op diagnosis: Personal history of colonic polyps Family history of colon cancer Post-op diagnosis: same Procedure & Clinicians Study performed: Colonoscopy Same procedure as scheduled: Yes Indications: 72-year-old man personal history colonic polyps in first-degree family member with colon cancer here for routine screening. Surgeon: Danielito Dela Cruz Procedure Notes Procedure in detail: The history and physical was performed/updated and the patient is ASA class is 2. The procedure was discussed in detail with the patient. Potential risks complications including infection, bleeding, missed diagnosis, perforation, need for surgery, and were explained. Their questions were answered and informed consent was obtained. Patient was brought to the procedure room and placed standard monitoring equipment. The patient's vital signs were monitored continuously throughout the entire procedure. Prior to starting time-out was performed. The patient was placed in the left lateral recumbent position. Procedural sedation was administered by anesthesia. Examination began with a thorough inspection of the perianal area there was no evidence of fissures, fistulae, external hemorrhoids or cutaneous malignancy. The colonoscopy scope was then placed into the anal canal and was advanced to the cecum, which was identified by the ileocecal valve, the appendiceal orifice and the confluence of the taenia. The scope was then slowly withdrawn examining colon thoroughly in all directions, irrigating it of any residual stool. The sigmoid colon was notable for extensive diverticulosis. No masses or polyps. Grade 2 internal hemorrhoids on retroflexion within the rectum. The patient tolerated the procedure well. They will be discharged once criteria are met. The prep was of good/excellent quality. The withdrawl time was 7 minutes. Specimen(s): none sent Impression: Diverticulosis Post-procedure Recommendations: Colonoscopy in 5 years and High fiber diet Disposition: same day surgery
[2022-10-13 08:47] VITALS: BP 157/100; PULSE 64; RESP 14; O2SAT 95
[2022-10-13 08:56] VITALS: BP 148/96; PULSE 75; RESP 16; TEMP 36.1; O2SAT 96
== END 2022-10-13 09:07 | disposition home or self-care (01) ==
PROVIDERS: PCP Family Medicine; Referring Provider Surgery; Visit Provider Surgery
PROC: 0DJD8ZZ Inspection of Lower Intestinal Tract, Via Natural or Artificial Opening Endoscopic (ICD-10-PCS; CPT 45378; principal; 2022-10-13 08:30)
DX: Z12.11 Encounter for screening for malignant neoplasm of colon (principal); Z80.0 Family history of malignant neoplasm of digestive organs; Z86.010 Personal history of colon polyps; K57.30 Diverticulosis of large intestine without perforation or abscess without bleeding; K64.1 Second degree hemorrhoids
CPT/HCPCS: G0105; J2704; J3010

== ENCOUNTER → 2023-02-22 08:18 | Outpatient (CLI) | payer MEDICARE, SELFPAY ==
--- NOTE | 2023-02-22 08:24 | DI.MRI.S_ITS ---
PROCEDURE: MR LUMBAR SPINE WO CON INDICATIONS: left sided back pain TECHNIQUE: Noncontrast sagittal T1 spin echo and T2 fast echo, sagittal STIR, and T2 fast spin echo through the lumbar spine. In cases with scoliosis, additional coronal T2 fast spin echo may be performed. COMPARISON: [facility], CR, XR LUMBAR SPINE 2-3V, 10/26/2018, 10:50. FINDINGS: Image quality: Excellent. Alignment and Curvature: Mild dextroconvex scoliotic curvature is seen. There is minimal retrolisthesis at L2-L3, L3-L4, L4-L5, and at L5-S1. Bone Marrow: Marrow is of normal overall signal. No acute vertebral body compression fractures. Spinal Cord: Conus medullaris terminates at the L1 level. Visualized cord demonstrates normal signal and size. Paraspinous Soft Tissues: No paravertebral masses. T12-L1: Normal appearance. L1-L2: Cyan-ys-stpnpzkq loss of disc height and disc signal can be seen. Mild generalized disc bulge is seen. Mild facet joint hypertrophy is seen. There is kplq-yj-jblejnlo bilateral neural foraminal narrowing. Minimal central canal narrowing is seen. L2-L3: Mild loss of disc height is seen. Loss of disc signal is seen. There is a superimposed central/left disc protrusion. There is a focal annular fissure seen posteriorly. Moderate bilateral neural foraminal narrowing is seen. Moderate central canal narrowing is seen. L3-L4: Mild loss of disc height is seen. Loss of disc signal is seen. Mild to moderate disc bulge is seen, with a mild central/left disc protrusion. Mild to moderate facet hypertrophy is seen. Moderate bilateral neural foraminal narrowing is seen. Moderate central canal narrowing is seen. L4-L5: Mild loss of disc height is seen. Loss of disc signal is seen. Moderate disc bulge is seen, which is eccentric to the left. There is a mild central disc protrusion. Mild to moderate facet hypertrophy can be seen. There is moderate bilateral neural foraminal narrowing, right worse than left. There is a mild degree of compression seen upon the exiting right L4 nerve root. Mild central canal narrowing is seen. L5-S1: Mild loss of disc height is seen. Loss of disc signal is seen. Mild to moderate disc bulge is seen, which is eccentric to the right. There is a superimposed central disc protrusion. There is also a right foraminal disc extrusion seen, as on series 3 images six and 7. There is a focal annular fissure seen posteriorly. There is moderate right-sided and mild left-sided facet hypertrophy. There is moderate to severe right-sided neural foraminal narrowing, with a degree of compression upon the exiting right L5 nerve root. Mild central canal narrowing is seen. IMPRESSION: Multiple levels of significant lumbar spine degenerative change can be seen. Several sites of significant neural foraminal narrowing can be seen, with associated exiting nerve root compression. Dictated by: Maximus Leong M.D. on 02/22/2023 at 10:49 Approved by: Maximus Leong M.D. on 02/22/2023 at 10:53
[2023-02-22 10:06] LABS: Add Manual Diff / Slide Review NO; Basophils Absolute Auto 0 /uL (0-100); Basophils Percent Auto 0.9 % (0-2); Eosinophils Absolute Auto 100 /uL (0-450); Hemoglobin 15.6 g/dL (13.5-17.5); Lymphocytes Absolute Auto 1200 /uL (1100-4500); Lymphocytes Percent Auto 28.3 % (25-40); Mean Corpuscular HGB Conc 34.7 % (30-36); Mean Corpuscular Hemoglobin 33.6 PG (26-34); Mean Corpuscular Volume 96.9 fL (80-100); Monocytes Absolute Auto 500 /uL (0-900); Monocytes Percent Auto 12.7 % (3-14); Neutrophils Absolute Auto 2400 /uL (1500-7000); Neutrophils Percent Auto 56.1 % (50-75); Platelet Count 238 X10^3/uL (150-400); Red Blood Cell Count 4.64 X10^6/uL (4.5-5.9); Red Cell Distribution Width 13.1 % (11.6-14.8); White Blood Cell Count 4.3 X10^3/uL (4.5-11.0)
[2023-02-22 10:23] LABS: Alanine Aminotransferase 21 IU/L (<50); Albumin Globulin Ratio 1.4 (1.0-2.8); Alkaline Phosphatase 45 U/L (38-126); Aspartate Aminotransferase 24 IU/L (17-59); Bilirubin Total 0.5 mg/dL (0.2-1.3); Blood Urea Nitrogen 20 mg/dL (9-20); Calcium 9.1 mg/dL (8.4-10.2); Carbon Dioxide 28 mmol/L (22-32); Chloride 104 mmol/L (98-107); Cholesterol 202 mg/dL (140-199); Estimated Glomerular Filt Rate > 60 mL/min (>60); Globulin 2.8 g/dL (1.7-4.1); Glucose 109 mg/dL (80-110); HDL Cholesterol 57 mg/dL (40-60); LDL Cholesterol Calculated 131 mg/dL (<100); Potassium 4.2 mmol/L (3.4-5.1); Sodium 137 mmol/L (137-145); Total Protein 6.8 g/dL (6.3-8.2); Triglycerides 71 mg/dL (35-150)
[2023-02-22 10:54] LABS: TSH w/ Reflex to FT4 2.29 uIU/mL (0.47-4.68)
[2023-02-22 11:02] LABS: HEMOLYSIS < 15 (0-50)
[2023-02-23 16:29] LABS: Prostate Specific Antigen Scrn 3.36 ng/mL (0.1-4.0)
== END ==
PROVIDERS: PCP Family Medicine; Referring Provider Family Medicine; Visit Provider Family Medicine
DX: M47.816 Spondylosis without myelopathy or radiculopathy, lumbar region (principal); E78.2 Mixed hyperlipidemia; Z12.5 Encounter for screening for malignant neoplasm of prostate; M47.27 Other spondylosis with radiculopathy, lumbosacral region; K57.30 Diverticulosis of large intestine without perforation or abscess without bleeding; M48.061 Spinal stenosis, lumbar region without neurogenic claudication
CPT/HCPCS: 36415; 72148; 80053; 80061; 84443; 85025; G0103

== ENCOUNTER → 2024-01-17 10:57 | Outpatient (CLI) | payer MEDICARE, SELFPAY ==
--- NOTE | 2024-01-17 10:58 | DI.RAD.S_ITS ---
PROCEDURE: XR LUMBAR SPINE MIN 4V INDICATIONS: BACK PAIN TECHNIQUE: 5 views of the lumbar spine were acquired, including bilateral oblique views. COMPARISON: [facility], , XR LUMBAR SPINE 2-3V, 10/26/2018, 10:50. FINDINGS: Bones: 5 nonrib-bearing vertebrae are present. Convex right scoliosis, Awad angle of 16 degrees. Moderate disc height loss at all levels. Diffuse facet arthrosis. No vertebral body compression fractures. No suspicious bony lesions. Soft tissues: Overlying bowel gas pattern is normal. No suspicious soft tissue calcifications. Oblique images: No pars defects. IMPRESSION: Moderate, multilevel degenerative disc disease and diffuse facet arthrosis. Convex right scoliosis. Dictated by: Caden Guerra M.D. on 01/17/2024 at 12:16 Approved by: Caden Guerra M.D. on 01/17/2024 at 12:19
== END ==
PROVIDERS: PCP Family Medicine; Referring Provider Physical Medicine & Rehabilitation; Visit Provider Physical Medicine & Rehabilitation
DX: M47.27 Other spondylosis with radiculopathy, lumbosacral region (principal); M47.26 Other spondylosis with radiculopathy, lumbar region; M51.16 Intervertebral disc disorders with radiculopathy, lumbar region; M41.9 Scoliosis, unspecified
CPT/HCPCS: 72110

== ENCOUNTER → 2024-02-11 09:06 | Outpatient (CLI) | payer MEDICARE, SELFPAY ==
[2024-02-11 10:02] LABS: Add Manual Diff / Slide Review NO; Basophils Absolute Auto 100 /uL (0-100); Basophils Percent Auto 1.8 % (0-2); Eosinophils Absolute Auto 100 /uL (0-450); Eosinophils Percent Auto 1.9 % (2-4); Hemoglobin 15.3 g/dL (13.5-17.5); Lymphocytes Absolute Auto 1400 /uL (1100-4500); Lymphocytes Percent Auto 28.5 % (25-40); Mean Corpuscular HGB Conc 34.9 % (30-36); Mean Corpuscular Hemoglobin 33.8 PG (26-34); Mean Corpuscular Volume 96.9 fL (80-100); Monocytes Absolute Auto 400 /uL (0-900); Monocytes Percent Auto 9.4 % (3-14); Neutrophils Absolute Auto 2800 /uL (1500-7000); Neutrophils Percent Auto 58.4 % (50-75); Platelet Count 220 X10^3/uL (150-400); Red Blood Cell Count 4.54 X10^6/uL (4.5-5.9); Red Cell Distribution Width 12.6 % (11.6-14.8); White Blood Cell Count 4.8 X10^3/uL (4.5-11.0)
[2024-02-11 10:11] LABS: Hemoglobin A1C% w Est Avg Glu 5.4 % (4.0-6.0)
[2024-02-11 10:27] LABS: Alanine Aminotransferase 26 IU/L (<50); Albumin 4.1 g/dL (3.5-5.0); Albumin Globulin Ratio 1.6 (1.0-2.8); Alkaline Phosphatase 50 U/L (38-126); Aspartate Aminotransferase 29 IU/L (17-59); Bilirubin Total 0.6 mg/dL (0.2-1.3); Blood Urea Nitrogen 23 mg/dL (9-20); Calcium 9.5 mg/dL (8.4-10.2); Carbon Dioxide 25 mmol/L (22-32); Chloride 107 mmol/L (98-107); Cholesterol 191 mg/dL (140-199); Estimated Glomerular Filt Rate > 60 mL/min (>60); Globulin 2.5 g/dL (1.7-4.1); Glucose 100 mg/dL (80-110); HDL Cholesterol 63 mg/dL (40-60); HEMOLYSIS < 15 (0-50); LDL Cholesterol Calculated 113 mg/dL (<100); Potassium 4.2 mmol/L (3.4-5.1); Sodium 138 mmol/L (137-145); Total Protein 6.6 g/dL (6.3-8.2); Triglycerides 73 mg/dL (35-150)
[2024-02-11 10:58] LABS: Prostate Specific Antigen Scrn 2.84 ng/mL (0.1-4.0); TSH w/ Reflex to FT4 1.46 uIU/mL (0.47-4.68)
== END ==
PROVIDERS: PCP Family Medicine; Referring Provider Family Medicine; Visit Provider Family Medicine
DX: E78.2 Mixed hyperlipidemia (principal); Z79.899 Other long term (current) drug therapy; Z12.5 Encounter for screening for malignant neoplasm of prostate; D58.2 Other hemoglobinopathies; R73.09 Other abnormal glucose
CPT/HCPCS: 36415; 80053; 80061; 83036; 84443; 85025; G0103

== ENCOUNTER → 2024-02-23 07:50 | Outpatient (CLI) | payer MEDICARE, SELFPAY | LOC: CAR 07:50 | PROVIDERS: PCP Family Medicine; Referring Provider Family Medicine; Visit Provider Family Medicine | DX: G45.9 Transient cerebral ischemic attack, unspecified (principal); Z86.73 Personal history of transient ischemic attack (TIA), and cerebral infarction without residual deficits | CPT/HCPCS: 93246 ==

== ENCOUNTER 2024-02-29 13:36 | Outpatient (CLI) | payer MEDICARE, SELFPAY ==
[2024-02-29] VITALS (8 sets, daily range): BP systolic 134–177; BP diastolic 63–88; PULSE 63–685; RESP 12–20; TEMP 36.3; O2SAT 96–100
--- NOTE | 2024-02-29 14:30 | DI.RAD.S_ITS ---
PROCEDURE: PAIN L INTERLAMINAR/CAUDAL INJ INDICATIONS: L3-4 translaminar GIOVANNI COMPARISON: None. FINDINGS: Fluoroscopic spot filming was performed to verify placement of spinal needles at the L3-4 level(s), as labeled on the films. Appropriate location(s) of the needle tip(s) was confirmed by injection of iodinated contrast. IMPRESSION: Fluoroscopic guidance utilized for an epidural injection at L3-4. Dictated by: Caden Guerra M.D. on 02/29/2024 at 17:33 Approved by: Caden Guerra M.D. on 02/29/2024 at 17:33
[2024-02-29] MEDS: MIDAZOLAM 2 MG/2 ML VIAL IV (15:16)
[2024-02-29] MEDS: iopamidoL 15 ML VIAL 3 ML INJ (15:24)
[2024-02-29] MEDS: BUPIVACAINE 0.25% (PF) VIAL 2 ML INJ (15:25)
[2024-02-29] MEDS: BETAMETHASONE 30 MG/5 ML MDV 6 MG INJ (15:26)
[2024-02-29] MEDS: DEXAMETHASONE 10 MG/ML VIAL INJ (15:26)
--- NOTE | 2024-02-29 15:33 | P.PCN_ITS ---
Date/Time/Diagnoses Date of procedure: 02/29/24 Time of procedure: 15:33 Pre-procedure diagnosis: 1. HNP WITH RADICULAR FEATURES, 2. MULTILEVEL CENTRAL STENOSIS, Post-procedure diagnosis: same Procedure Notes Procedure: 1. FLUOROSCOPICALLY GUIDED CONTRAST CONTROLLED INTERLAMINAR EPIDURAL STEROID INJECTION - L3/4 Indications: Kirt is referred by Dr. Charlton for treatment of Bilateral Foraminal Stenosis L>R LE symptoms. Physician: Geoff Mandel Total Fluoroscopy time (seconds): 5 Total sedation minutes: 12 Complications: none Procedure in detail & Post-procedure care: FINDINGS Multilevel Central Spinal Stenosis with Nerve Root Compression DESCRIPTION OF PROCEDURE Fluoroscopically guided, contrast-controlled L3/4 translaminar epidural steroid injection. Following review of allergy and review of potential side effects and complications, including, but not necessarily limited to, infection, allergic reaction, local tissue breakdown, temporary as well as permanent nerve injury, paralysis, stroke and possible , the patient indicated that the patient understood and agreed to proceed. An informed consent document was signed by the patient, witnessed by a nurse, and placed in the patient's chart. Additionally, other treatment options including modalities, medications, and physical therapy were reviewed with the patient. After review of previous anaesthesic history and IV conscious sedation the patient was deemed safe to proceed with today?s procedure with IV conscious sedation as ASA class II designation. Safety time-out was performed to confirm patient ID, procedure to be performed and site of procedure. IV sedation was accomplished with a combination of 2mg of Versed was administered by the RN after DO order, titrated to patient comfort during the course of the procedure while the patient remained responsive to all verbal commands. In the prone position, following sterile prep and drape of the lumbar region, the L3/4 translaminar space was identified fluoroscopically. The skin was anesthetized via a 25-gauge, 1.5-inch needle with 1% lidocaine solution. At this point, a 22-gauge short bevel spinal needle was atraumatically introduced and advanced under fluoroscopic guidance into the region of the L3/4 translaminar space. Depth was confirmed on lateral view. Radiological data, including multiple fluoroscopic views of the lumbar spine, reveal a spinal needle at the L3/4 translaminar space. Lateral views then show placement of the needle in the epidural space. Subsequent views show contrast material flowing superiorly and inferiorly in the epidural space. No vascular or intrathecal uptake is observed. At this point, using loss of resistance technique with saline and air, the epidural space was entered. This was confirmed following negative aspiration with injection of approximately 1.5 cc of Isovue 200, showing excellent epidural flow without vascular or intrathecal uptake. At this point, 1cc of 1% lidocaine solution combined with 2cc or 10mg of dexamethasone and 6mg of betamethasone was injected without incident. The patient tolerated the procedure well without signs or symptoms of complications prior to transfer to the recovery area continued monitoring without incident. The patient was then transferred to the recovery area where they were observed for an appropriate period of time after the injection. The patient reported a VAS score of 6 prior to the procedure and a post- procedure VAS of 0. POST OP INSTRUCTIONS The patient was provided a Pain Log to continue to record their response to the target-specific procedure prior to follow-up visit with their referring physician. Additionally, specific post-injection care instructions and a contact number to our office were provided if concerns arise regarding possible complications associated with the procedure are suspected.
== END 2024-02-29 15:54 | disposition home or self-care (01) ==
LOC: RAD 13:37
PROVIDERS: PCP Family Medicine; Referring Provider Physical Medicine & Rehabilitation; Visit Provider Physical Medicine & Rehabilitation
DX: M51.16 Intervertebral disc disorders with radiculopathy, lumbar region (principal); M47.26 Other spondylosis with radiculopathy, lumbar region
CPT/HCPCS: 62323; 99152; J0702; J1100; J2250; J3490

== ENCOUNTER → 2024-03-03 08:06 | Outpatient (CLI) | payer MEDICARE, SELFPAY ==
--- NOTE | 2024-03-03 08:07 | DI.ECHO.S_ITS ---
[facility] : : [address] : : [place] : : [id number] : : Phone: [phone] Echocardiogram Report + + :Name: ADELA HOOD Study Date: 03/03/2024 Height: 71 in : :[facility] ReadingLocation: Weight: 186 lb : : Gender: Male BSA: 2.0 m2 : :: 1950 Age: 73 yrs BP: 149/91 mmHg: :Reason For Study: TIA : :Ordering Physician: JEROD, : :CHLOE Performed By: Carmela Major : :Referring: CHLOE NEWSOME : + + Interpretation Summary Sinus bradycardia with HR 47-51 bpm. Normal LV size, wall thickness, wall motion and LV systolic function. EF is 50-55%. Normal chamber sizes. No significant valvular abnormalities. Incidentally noted atherosclerotic plaque in the ascending aorta. No prior study available for comparison. Procedure: A two-dimensional transthoracic echocardiogram with color flow and Doppler was performed. The study quality was technically adequate. There is no prior echocardiogram noted for this patient. The patient was in sinus bradycardia with heart rates between 47-51 bpm during the exam. Left Ventricle: The left ventricle is normal in size and wall thickness. The ejection fraction is estimated to be 50-55%. Right Ventricle: The right ventricle is normal in size and function. Atria: The left atrial size is normal. Right atrial size is normal. There is no Doppler evidence for an interatrial shunt. Mitral Valve: The mitral valve is normal in structure and function. There is trace mitral regurgitation. Aortic Valve: The aortic valve is trileaflet. The aortic valve opens well. There is no aortic valve stenosis. No aortic regurgitation is present. Tricuspid Valve: The tricuspid valve is normal in structure and function. There is a trace or physiologic amount of tricuspid regurgitation. Pulmonary artery pressures cannot be estimated because of the lack of a measurable TR jet velocity. Pulmonic Valve: The pulmonic valve leaflets are thin and pliable; valve motion is normal. There is no pulmonic valvular regurgitation. Great Vessels: The aortic root is normal size. The dimensions of the ascending aorta are normal. The IVC is of normal diameter and collapses greater than 50% with a sniff. This suggests a low right atrial pressure of 3 mm Hg. Pericardium/ Pleura There is no pericardial effusion. There is no pleural effusion. MMode/2D Measurements & Calculations LVIDd: 4.7 cm LVOT diam: 2.3 cm LVIDs: 3.3 cm Ao root diam: 3.5 cm FS: 29.3 % asc Aorta Diam: 3.7 cm EPSS: 1.0 cm Ao Arch Diam (Prox Trans): 3.1 cm IVSd: 0.79 cm LVPWd: 0.85 cm LV lees. diameter/BSA (cm/m^2): 2.3 LV sys. diameter/BSA (cm/m^2): 1.6 LA A2 area: 18.7 cm2 RA long axis: 5.1 cm LA A4 area: 13.9 cm2 RA area: 14.2 cm2 LA length (vol): 5.1 cm RA vol: 33.2 ml LA vol: 43.6 ml RA : 16.3 ml/m2 LA vol index: 21.3 ml/m2 IVC diam: 1.8 cm RVD1 (basal): 2.8 cm RVD2 (mid): 2.4 cm TAPSE: 1.8 cm Doppler Measurements & Calculations Ao V2 max: 108.2 cm/sec LVOT Max Maynor: 88.8 cm/sec Ao V2 mean: 81.3 cm/sec LV V1 max P.2 mmHg Ao max P.7 mmHg LV V1 VTI: 20.2 cm Ao mean P.8 mmHg HARDEEP(I,D): 3.3 cm2 Ao V2 VTI: 26.0 cm HARDEEP(V,D): 3.4 cm2 sev ratio: 0.78 HARDEEP indexed to BSA (cm^2/m^2): 1.6 MV E max maynor: 46.1 cm/sec PA V2 max: 66.2 cm/sec MV A max maynor: 41.6 cm/sec PA V2 mean: 47.5 cm/sec MV E/A: 1.1 PA mean P.98 mmHg Med Peak E' Maynor: 7.4 cm/sec PA pr(Accel): 36.2 mmHg E/E' med: 6.2 Lat Peak E' Maynor: 9.4 cm/sec E/E' lat: 4.9 E/e' average: 5.5 MV dec time: 0.27 sec SV(LVOT): 84.5 ml Electronically signed by: Minoo Larson M.D. on Reading Physician:03/04/2024 09:18 AM
== END ==
PROVIDERS: PCP Family Medicine; Referring Provider Family Medicine; Visit Provider Family Medicine
DX: G45.9 Transient cerebral ischemic attack, unspecified (principal)
CPT/HCPCS: 93306

== ENCOUNTER → 2024-03-05 10:13 | Outpatient (CLI) | payer MEDICARE, SELFPAY ==
--- NOTE | 2024-03-05 10:14 | DI.MRI.S_ITS ---
PROCEDURE: MR STROKE Pre- and post-contrast brain MRI, non-contrast brain MR angiogram, pre- and postcontrast neck MR angiogram INDICATIONS: confusion and loss TECHNIQUE: Brain: Noncontrast axial T1 spin echo, axial T2 fast spin echo, sagittal and axial FLAIR, coronal T2 fast spin echo, axial gradient echo, axial diffusion and ADC through the brain. After the administration of contrast, axial 3D VIBE of the cranial vasculature and brain. Brain MRA: Non-contrast 3-D time of flight MR angiogram, with multiple fpcpbhl-yqveiwtmv-ybrqknmwzg (MIP) reformats performed. Neck MRA: Axial and sagittal TruFISP through the neck. Coronal dynamic MR angiogram during administration of contrast in the arterial and venous phases, with 3-dimenstional dknonjj-ycetriqwt-wnedepmfcb (MIP) reformats constructed from subtraction images. COMPARISON: None. FINDINGS: Image quality: Excellent. BRAIN: CSF spaces: Ventricles are normal in size and shape. Basal cisterns are patent. No extra-axial fluid collections. Brain: No intracranial bleeds or mass effects. Vickers-white matter interface is normal. Diffusion weighted images show no acute infarct. Brainstem appears normal. Normal intravascular flow voids are present. No abnormal intracranial enhancement. Skull and face: Calvarial marrow signal is normal. Orbits appear normal. Sinuses: Sinuses and mastoids are clear. BRAIN MR ANGIOGRAM: Anterior circulation: Intracranial internal carotid arteries are normal in size and enhancement. The flow within the paired anterior cerebral arteries is normal and symmetric. The flow within the middle cerebral arteries is normal and symmetric. The anterior communicating artery is seen. No stenoses, occlusions, or aneurysms. Posterior circulation: The visualized portions of the vertebral arteries demonstrate normal caliber, and join to form a normal appearing basilar artery. The flow within the posterior cerebral arteries is normal and symmetric. No stenoses, occlusions, or aneurysms. NECK MR ANGIOGRAM: Carotids: Great vessels demonstrate a conventional anatomy as they arise from the aortic arch. The origins of the common carotid arteries appear patent. The calibers and courses of both common carotid arteries are normal. The bifurcation regions appear normal bilaterally. The internal carotid arteries demonstrate normal course and caliber. Posterior circulation: The origins of the vertebral arteries appear patent. More superior portions of both vertebral arteries demonstrate normal course and caliber, and join to form a normal appearing basilar artery. Miscellaneous: Subclavian arteries appear patent. Pre-contrast images through the neck show no soft tissue abnormalities. IMPRESSION: BRAIN MRI: No acute intracranial pathology. BRAIN MR ANGIOGRAM: No large vessel occlusion. NECK MR ANGIOGRAM: No large vessel occlusion. Dictated by: Caden Guerra M.D. on 03/05/2024 at 19:15 Approved by: Caden Guerra M.D. on 03/05/2024 at 19:16
== END ==
LOC: MRI 10:14
PROVIDERS: PCP Family Medicine; Referring Provider Family Medicine; Visit Provider Family Medicine
DX: G45.9 Transient cerebral ischemic attack, unspecified (principal)
CPT/HCPCS: 70544; 70549; 70553; A9579

== ENCOUNTER → 2024-09-29 09:10 | Outpatient (CLI) | payer MEDICARE, SELFPAY | PROVIDERS: PCP Family Medicine; Visit Provider Chiropractor | DX: R35.0 Frequency of micturition (principal) | CPT/HCPCS: 87086 ==

== ENCOUNTER → 2025-02-22 12:13 | Outpatient (CLI) | payer MEDICARE, SELFPAY ==
[2025-02-22 12:40] LABS: Add Manual Diff / Slide Review NO; Hematocrit 47.4 % (41-53); Hemoglobin 16.3 g/dL (13.5-17.5); Lymphocytes Absolute Auto 1200 /uL (1100-4500); Mean Corpuscular HGB Conc 34.5 % (30-36); Mean Corpuscular Hemoglobin 34.0 PG (26-34); Mean Corpuscular Volume 98.8 fL (80-100); Platelet Count 238 X10^3/uL (150-400)
[2025-02-22 13:00] LABS: Alanine Aminotransferase 24 IU/L (<50); Albumin 4.5 g/dL (3.5-5.0); Albumin Globulin Ratio 1.7 (1.0-2.8); Alkaline Phosphatase 57 U/L (38-126); Blood Urea Nitrogen 20 mg/dL (9-20); Calcium 9.3 mg/dL (8.4-10.2); Carbon Dioxide 26 mmol/L (22-32); Chloride 102 mmol/L (98-107); Cholesterol 190 mg/dL (140-199); Estimated Glomerular Filt Rate > 60 mL/min (>60); Globulin 2.7 g/dL (1.7-4.1); Glucose 97 mg/dL (70-99); HDL Cholesterol 71 mg/dL (40-60); HEMOLYSIS < 15 (0-50); Potassium 4.7 mmol/L (3.4-5.1); Sodium 138 mmol/L (137-145); Total Protein 7.2 g/dL (6.3-8.2); Triglycerides 81 mg/dL (35-150)
[2025-02-22 13:30] LABS: TSH w/ Reflex to FT4 1.69 uIU/mL (0.47-4.68)
== END ==
PROVIDERS: PCP Family Medicine; Referring Provider Family Medicine; Visit Provider Family Medicine
DX: Z12.5 Encounter for screening for malignant neoplasm of prostate (principal); G45.9 Transient cerebral ischemic attack, unspecified; F41.1 Generalized anxiety disorder; E78.2 Mixed hyperlipidemia
CPT/HCPCS: 36415; 80053; 80061; 84443; 85025; G0103